=== PATIENT | male | born 1960 | race Caucasian/White ===

== ENCOUNTER 2020-02-26 04:00 | Emergency (ER) | payer OTHER ==
[~2020-02-26] VITALS: Ht 180.3 cm; Wt 130.4 kg
[~2020-02-26 04:00] MED LIST: ALBU2.5V8 INH; METH4TAB2 PO
[2020-02-26] MEDS ORDERED: EPINEPHrine 1 MG/ML VIAL IM PRN (04:30)
[2020-02-26 05:30] VITALS: BP 156/67
--- NOTE | 2020-02-26 05:46 | ED.ADGEN ---
Past Medical History Past Medical History: Cancer, GERD, High Cholesterol, Hypertension Additional Past Medical Histor: MELOMA CANCER Past Surgical History: Other Additional Past Surgical Histo: LASIK EYE SURGERY, RIGHT ARM MELANOMA Smoking Status: Never Smoker Alcohol Use: Occasionally Additional Information: WINE Drug Use: None General Adult EDM: Chief Complaint: DYSPNEA/RESPIRATOY DISTRESS HPI: HPI: Patient is a 59 year old male brought in by EMS for shortness of breath. Patient awoke just prior to arrival with stridor, EMS was called patient was initially able to calm down and breathing improved but then got worse again. Patient is noted to have inspiratory stridor. Patient states he has had multiple episodes this in the past without any definitive diagnosis. Patient states his usually happens and he is able to calm himself down. Patient appears anxious but is able to speak in short sentences and maintaining oxygen saturations. Patient given an injection of epinephrine, he denies any history of allergic reactions or anaphylaxis. Counseled on breathing techniques. Patient improved and observed in emergency department. Patient is taking lisinopril for hypertension, but denies any history of lip swelling or tongue swelling. Review of Systems: Review of Systems: Constitutional: Denies fever or chills. [] Eyes: Denies change in visual acuity. [] HENT: Denies nasal congestion, but has burning sensation and sore throat. [] Respiratory: Shortness of breath, stridor Cardiovascular: Denies chest pain or edema. [] GI: Denies abdominal pain, nausea, vomiting, bloody stools or diarrhea. [] : Denies dysuria. [] Musculoskeletal: Denies back pain or joint pain. [] Integument: Denies rash. [] Neurologic: Denies headache, focal weakness or sensory changes. [] Endocrine: Denies polyuria or polydipsia. [] Lymphatic: Denies swollen glands. [] Psychiatric: Denies depression or anxiety. [] Current Medications: Current Medications Medications (Trade) Dose Ordered Sig/Marques Start Time Stop Time Status Last Admin Dose Admin Epinephrine HCl (Adrenalin) 0.3 mg PRN Q5MIN PRN 02/26/20 04:30 02/26/20 06:57 DC 02/26/20 04:25 0.3 MG Allergies: Allergies: Allergies Coded Allergies Type Severity Reaction Last Updated Verified No Known Drug Allergies 11/05/18 No Physical Exam: PE: Constitutional: Well-developed, obese, moderate distress HENT: Normocephalic, atraumatic, bilateral external ears normal, oropharynx moist, large pendulous uvula, patent airway Eyes: PERRLA, EOMI, conjunctiva normal, no discharge. [] Neck: Normal range of motion, no tenderness, supple, +stridor. [] Cardiovascular:Heart rate regular rhythm, no murmur [] Lungs & Thorax: Bilateral breath sounds clear to auscultation [] Abdomen: Bowel sounds normal, soft, no tenderness, no masses, no pulsatile masses. [] Skin: Warm, dry, no erythema, no rash. [] Back: No tenderness, no CVA tenderness. [] Extremities: No tenderness, no cyanosis, no clubbing, ROM intact, no edema. [] Neurologic: Alert and oriented X 3, normal motor function, normal sensory function, no focal deficits noted. [] Psychologic: Affect normal, anxious Current Patient Data: Vital Signs: Vital Signs Date Time Temp Pulse Resp B/P (MAP) Pulse Ox O2 Delivery O2 Flow Rate FiO2 02/26/20 05:30 98.1 86 22 156/67 (96) 98 Room Air 98.1 02/26/20 04:30 4.0 EKG: EKG: [] Heart Score: Risk Factors: Risk Factors: DM, Current or recent (<one month) smoker, HTN, HLP, family history of CAD, obesity. Risk Scores: Score 0 - 3: 2.5% MACE over next 6 weeks - Discharge Home Score 4 - 6: 20.3% MACE over next 6 weeks - Admit for Clinical Observation Score 7 - 10: 72.7% MACE over next 6 weeks - Early Invasive Strategies Radiology/Procedures: Radiology/Procedures: [] Course & Med Decision Making: Course & Med Decision Making Patient observed due to having been given epi, symptoms did not recur and he is comfortable and speaking in full sentences. Discussed discontinuing lisinopril until his primary care can reassess whether he is having angioedema due to lisinopril. Also discussed him following up with ENT for possible evaluation if he needs a uvular resection. Patient states that when he wakes up he feels like there is something swelling in his throat that feels like in the same location of the uvula. Advised patient to ensure that his CPAP always has water in it, he states that his CPAP was empty did not have any water in the last night. [] Dragon Disclaimer: Dragon Disclaimer: This electronic medical record was generated, in whole or in part, using a voice recognition dictation system. Departure Departure Impression: Primary Impression: Intermittent stridor Disposition: 01 DC HOME SELF CARE/HOMELESS Condition: IMPROVED Referrals: UNKNOWN PCP NAME (PCP) Patient Instructions: Stridor Additional Instructions: Discontinue taking lisinopril until you speak with your primary care provider about the possibility of it causing swelling in the airways. Also consider ENT referral for enlarged uvula and examination of upper airway. SYLVESTER SAVAGE MD Feb 26, 2020 05:46
== END 2020-02-26 06:00 | disposition home or self-care (01) ==
LOC: ER 04:00
DX: R06.1 Stridor (principal); R06.02 Shortness of breath; R60.0 Localized edema; K21.9 Gastro-esophageal reflux disease without esophagitis; E78.00 Pure hypercholesterolemia, unspecified; I10 Essential (primary) hypertension; Z85.9 Personal history of malignant neoplasm, unspecified; Z98.890 Other specified postprocedural states
CPT/HCPCS: 96372; 99285; J0171